=== PATIENT | male | born 1995 | race African-American/Black ===

== ENCOUNTER 2017-06-09 03:56 | Observation (INO) | payer OTHER ==
[~2017-06-09] VITALS: Ht 177.8 cm; Wt 58.1 kg
--- NOTE | 2017-06-09 04:16 | ED.ADGEN ---
Adult General Chief Complaint Chief Complaint: WEAKNESS/GENERALIZED HPI HPI Patient is a 22 year old man with no significant past medical history, who presents via EMS with report of fall, followed by headache, and possible syncope. Patient states that he was at work, when he tripped and struck his head against a desk. Patient states this occurred around 11:15 at night. Patient states that around 11:30 he certain noticing worsening of a frontal headache, and began feeling dizzy and "not well". He states that he may have struck his left chest against a desk as well. He denies any loss of consciousness at that time, any focal weakness, numbness or tingling. Patient states that he is currently having a throbbing numb feeling in the front of his head on the left side, denies any nausea or vomiting, any chest pain or shortness of breath, any focal weakness numbness or tingling at this time as well. 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 Patient states he is unclear if he may have lost consciousness, and cannot give a clear history of what occurred between 11:30, and the current time 4 AM. He denies any ingestions or exposures, any preceding symptoms. No similar episodes per his report. Review of Systems Review of Systems Constitutional: Denies fever or chills. [] Eyes: Denies change in visual acuity. [] HENT: Denies nasal congestion or sore throat. [] Respiratory: Denies cough or shortness of breath. [] Complaining of pain in the left side of his chest. Cardiovascular: Denies chest pain or edema. [] GI: Denies abdominal pain, nausea, vomiting, bloody stools or diarrhea. [] : Denies dysuria. [] Musculoskeletal: Denies back pain or joint pain. [] Integument: Denies rash. [] Neurologic: Denies focal weakness or sensory changes. Complaining of left frontal headache. Endocrine: Denies polyuria or polydipsia. [] Lymphatic: Denies swollen glands. [] Psychiatric: Denies depression or anxiety. [] Current Medications Current Medications Current Medications Medications (Trade) Dose Ordered Sig/Rodri Start Time Stop Time Status Last Admin Dose Admin Acetaminophen (Tylenol) 650 mg PRN Q4HRS PRN 06/09/17 06:30 06/10/17 06:29 Ondansetron HCl (Zofran) 4 mg PRN Q8HRS PRN 06/09/17 06:30 06/10/17 06:29 Sodium Chloride 1,000 ml @ 1,000 mls/hr 1X ONCE 06/09/17 06:00 06/09/17 06:59 06/09/17 05:30 1,000 MLS/HR Allergies Allergies Allergies Coded Allergies Type Severity Reaction Last Updated Verified No Known Drug Allergies 06/09/17 No Physical Exam Physical Exam Constitutional: Well developed, well nourished, no acute distress, non-toxic appearance. [] HENT: Normocephalic, atraumatic, bilateral external ears normal, oropharynx moist, no oral exudates, nose normal. [] Eyes: PERRLA, EOMI, conjunctiva normal, no discharge. [] Neck: Normal range of motion, no tenderness, supple, no stridor. [] Cardiovascular:Heart rate regular rhythm, no murmur, S1, S2, no rubs or gallops. No chest or crepitus. Patient with tenderness around the lateral and anterior left chest wall. No deformity or evidence of trauma identified. [] Lungs & Thorax: Bilateral breath sounds clear to auscultation, no wheezing, rhonchi, rales. [] Abdomen: Bowel sounds normal, soft, no tenderness, no masses, no pulsatile masses. [] Skin: Warm, dry, no erythema, no rash. [] Back: No tenderness, no CVA tenderness. [] Extremities: No tenderness, no cyanosis, no clubbing, ROM intact, no edema. Negative Homans sign. [] Neurologic: Alert and oriented X 3, normal motor function, normal sensory function, no focal deficits noted. GCS of 15, patient following all commands, appears slightly drowsy, but intact. Psychologic: Affect normal, judgement normal, mood normal. [] Current Patient Data Vital Signs Vital Signs Date Time Temp Pulse Resp B/P (MAP) Pulse Ox O2 Delivery O2 Flow Rate FiO2 06/09/17 04:58 72 13 109/56 (73) 97 Room Air 06/09/17 04:11 98.1 98.1 Lab Values Laboratory Tests Test 06/09/17 05:07 06/09/17 05:22 White Blood Count 5.6 x10^3/uL (4.0-11.0) Red Blood Count 4.46 x10^6/uL (4.30-5.70) Hemoglobin 13.2 g/dL (13.0-17.5) Hematocrit 38.4 % (39.0-53.0) L Mean Corpuscular Volume 86 fL (79-100) Mean Corpuscular Hemoglobin 30 pg (25-35) Mean Corpuscular Hemoglobin Concent 34 g/dL (31-37) Red Cell Distribution Width 12.8 % (11.5-14.5) Platelet Count 221 x10^3/uL (140-400) Neutrophils (%) (Auto) 47 % (31-73) Lymphocytes (%) (Auto) 31 % (24-48) Monocytes (%) (Auto) 10 % (0-9) H Eosinophils (%) (Auto) 12 % (0-3) H Basophils (%) (Auto) 1 % (0-3) Neutrophils # (Auto) 2.6 x10^3uL (1.8-7.7) Lymphocytes # (Auto) 1.7 x10^3/uL (1.0-4.8) Monocytes # (Auto) 0.6 x10^3/uL (0.0-1.1) Eosinophils # (Auto) 0.7 x10^3/uL (0.0-0.7) Basophils # (Auto) 0.0 x10^3/uL (0.0-0.2) Sodium Level 139 mmol/L (136-145) Potassium Level 3.3 mmol/L (3.5-5.1) L Chloride Level 104 mmol/L (98-107) Carbon Dioxide Level 29 mmol/L (21-32) Anion Gap 6 (6-14) Blood Urea Nitrogen 9 mg/dL (8-26) Creatinine 1.0 mg/dL (0.7-1.3) Estimated GFR (Cockcroft-Gault) 115.3 BUN/Creatinine Ratio 9 (6-20) Glucose Level 102 mg/dL (70-99) H Calcium Level 9.0 mg/dL (8.5-10.1) Total Bilirubin 0.4 mg/dL (0.2-1.0) Aspartate Amino Transferase (AST) 15 U/L (15-37) Alanine Aminotransferase (ALT) 17 U/L (16-63) Alkaline Phosphatase 71 U/L (46-116) Troponin I Quantitative < 0.017 ng/mL (0.000-0.055) Total Protein 7.2 g/dL (6.4-8.2) Albumin 3.7 g/dL (3.4-5.0) Albumin/Globulin Ratio 1.1 (1.0-1.7) Lipase 238 U/L (73-393) Urine Collection Type Unknown Urine Color Yellow Urine Clarity Clear Urine pH 6.0 Urine Specific [place] >=1.030 Urine Protein Negative mg/dL (NEG-TRACE) Urine Glucose (UA) Negative mg/dL (NEG) Urine Ketones (Stick) Negative mg/dL (NEG) Urine Blood Negative (NEG) Urine Nitrite Negative (NEG) Urine Bilirubin Small (NEG) Urine Urobilinogen Dipstick 1.0 mg/dL (0.2 mg/dL) Urine Leukocyte Esterase Negative (NEG) Urine RBC 0 /HPF (0-2) Urine WBC 0 /HPF (0-4) Urine Bacteria 0 /HPF (0-FEW) Urine Mucus Slight /LPF Urine Opiates Screen Neg (NEG) Urine Methadone Screen Neg (NEG) Urine Barbiturates Neg (NEG) Urine Phencyclidine Screen Neg (NEG) Urine Amphetamine/Methamphetamine Neg (NEG) Urine Benzodiazepines Screen Neg (NEG) Urine Cocaine Screen Neg (NEG) Urine Cannabinoids Screen Pos (NEG) Urine Ethyl Alcohol Neg (NEG) Laboratory Tests 06/09/17 05:07 Laboratory Tests 06/09/17 05:07 EKG EKG EC: Sinus rhythm, heart rate 88 beats/minute, upright axis, QTC of 4:15, MT 194, QRS of 74, patient with contour's with ST elevation in the lateral and anterior leads, consistent with age and body habitus, as interpreted by me. No prior for comparison. Radiology/Procedures Radiology/Procedures [][facility] [address] [place] [address] IMAGING REPORT Signed PATIENT: CLARITZA WRIGHT ACCOUNT: [id number] : 1995 LOCATION: ER AGE: 22 SEX: M EXAM STATUS: REG ER ORD. PHYSICIAN: JOSEPH FLORES DO REASON: Syncope/fall/GALLO/neck pain/AMS PROCEDURE: CT HEAD AND CERVICAL SPINE WO INDICATION: syncope COMPARISON: None. TECHNIQUE: Axial CT images obtained through the head and cervical spine without intravenous contrast. Coronal and sagittal reformats processed of cervical spine. One or more of the following individualized dose reduction techniques were utilized for this examination: 1. Automated exposure control; 2. Adjustment of the mA and/or kV according to patient size; 3. Use of iterative reconstruction technique. FINDINGS: Head: No intracranial hemorrhage. No midline shift. Basal cisterns patents. Ventricles and sulci are within normal limits. No acute osseous abnormality. Orbits and paranasal sinuses unremarkable. Cervical: No definite acute fracture. No significant malalignment. No evidence of perivertebral hematoma. IMPRESSION: No acute intracranial hemorrhage. No definite acute fracture or dislocation of the cervical spine. Electronically signed by: Shahab Porter MD (06/09/2017 4:57 AM) [facility] DICTATED and SIGNED BY: SHAHAB PORTER MD DATE: 06/09/17 0443 CC: JOSEPH FLORES DO; NO PCP ~ RIBS left NPH chest: Three-view: Normal cardiopulmonary silhouette, no infiltrates, no effusions, no pneumothorax, no soft tissue or bony abnormalities identified. As interpreted by me. Course & Med Decision Making Course & Med Decision Making Pertinent Labs and Imaging studies reviewed. (See chart for details) Patient is a poor historian, with unclear history. Due to complaints of neck pain, with possible traumatic injury to head and chest, c-collar placed upon arousing emergency department. Patient's heart rate is 91, blood pressure is 139 /84, oxygen saturation is 99% on room air, respiratory rate is 18 and unlabored. ECG of the head and neck is unremarkable, c-collar cleared without issue in the ED. Laboratory studies revealed a potassium of 3.3, otherwise electrolytes and renal function within normal limits, patient's urinalysis was positive for marijuana. No other concerning findings identified. On reevaluation , patient states he still feels very lightheaded, and was unable to pass ambulatory trial due to dizziness. Possible postconcussive syndrome after traumatic injury, on clear the patient actually had a single episode. Patient is agreeable for admission to the hospital for further monitoring and observation, findings as above discussed with the Dr. Erickson of internal medicine, patient accepted to her service as an observation admission, with consultation placed for neurology, bridge orders entered per discussion. Patient remained stable and comfortable awaiting transfer to the floor. Dragon Disclaimer Dragon Disclaimer This electronic medical record was generated, in whole or in part, using a voice recognition dictation system. Departure Impression: Primary Impression: Postconcussive syndrome Disposition: ADMITTED INPATIENT Admitting Physician: Other Condition: IMPROVED JOSEPH FLORES DO Jun 09, 2017 04:16
--- NOTE | 2017-06-09 05:01 | RAD ---
INDICATION: syncope COMPARISON: None. TECHNIQUE: Axial CT images obtained through the head and cervical spine without intravenous contrast. Coronal and sagittal reformats processed of cervical spine. One or more of the following individualized dose reduction techniques were utilized for this examination: 1. Automated exposure control; 2. Adjustment of the mA and/or kV according to patient size; 3. Use of iterative reconstruction technique. FINDINGS: Head: No intracranial hemorrhage. No midline shift. Basal cisterns patents. Ventricles and sulci are within normal limits. No acute osseous abnormality. Orbits and paranasal sinuses unremarkable. Cervical: No definite acute fracture. No significant malalignment. No evidence of perivertebral hematoma. IMPRESSION: No acute intracranial hemorrhage. No definite acute fracture or dislocation of the cervical spine. Electronically signed by: Nitin Celis MD (06/09/2017 4:57 AM) [facility]
[2017-06-09 05:25] LABS: BASO % 1 % (0-3); EOS % 12 % (0-3); HEMATOCRIT 38.4 % (39.0-53.0); HEMOGLOBIN 13.2 g/dL (13.0-17.5); LYMPH # 1.7 x10^3/uL (1.0-4.8); LYMPH % 31 % (24-48); MEAN CORPUSCULAR HEMOGLOBIN 30 pg (25-35); MEAN CORPUSCULAR HGB CONC 34 g/dL (31-37); MEAN CORPUSCULAR VOLUME 86 fL (79-100); MONO % 10 % (0-9); NEUT % 47 % (31-73); PLATELET COUNT 221 x10^3/uL (140-400); RED BLOOD COUNT 4.46 x10^6/uL (4.30-5.70); RED CELL DISTRIBUTION WIDTH 12.8 % (11.5-14.5); WHITE BLOOD COUNT 5.6 x10^3/uL (4.0-11.0)
[2017-06-09 05:30] LABS: BILIRUBIN,URINE SMALL (NEG); GLUCOSE,URINE NEGATIVE (NEG); NITRITE,URINE NEGATIVE (NEG); PROTEIN,URINE NEGATIVE (NEG-TRACE)
[2017-06-09 05:31] LABS: GFR 115.3; POTASSIUM 3.3 mmol/L (3.5-5.1)
[2017-06-09 05:37] LABS: ALBUMIN 3.7 g/dL (3.4-5.0); ALBUMIN/GLOBULIN RATIO 1.1 (1.0-1.7); TOTAL BILIRUBIN 0.4 mg/dL (0.2-1.0); TOTAL PROTEIN 7.2 g/dL (6.4-8.2)
[2017-06-09 05:39] LABS: BARBITURATES NEG (NEG); BENZODIAZEPINES NEG (NEG); CANNABINOIDS POS (NEG); COCAINE NEG (NEG); METHADONE NEG (NEG); OPIATES NEG (NEG); PHENCYCLIDINE NEG (NEG)
[2017-06-09 05:43] LABS: BACTERIA,URINE 0 /HPF (0-FEW); RBC,URINE 0 /HPF (0-2); WBC,URINE 0 /HPF (0-4)
[2017-06-09] MEDS ORDERED: IV NORMAL SALINE 1000ML BAG 1,000 ML IV ONE (06:00)
[2017-06-09] MEDS ORDERED: ACETAMINOPHEN 325 MG TABLET. PO PRN (06:30)
[2017-06-09] MEDS ORDERED: ONDANSETRON PF 4 MG/2 ML VIAL. IV PRN (06:30)
--- NOTE | 2017-06-09 06:49 | EKG ---
[facility] [address] [place] [address] Test Date: 2017-06-09 Test Time: 04:13:38 Pat Name: CLARITZA WRIGHT Department: Room: Gender: M Die Cut Operator: : 1995 Requested By: JOSEPH FLORES Order Number: [id number] Reading MD: Romeo Medeiros Measurements Intervals [place] Rate: 88 P: 47 HI: 194 QRS: 26 QRSD: 74 T: 51 QT: 340 QTc: 415 Interpretive Statements SINUS RHYTHM Electronically Signed On 06-13-2017 10:56:50 CDT by Romeo Medeiros
--- NOTE | 2017-06-09 07:28 | RAD ---
Indication pain associated with a fall. An AP view the chest was obtained as well as films targeted to left ribs. No prior imaging of the chest is available. The heart and pulmonary vessels appear normal. The lungs are clear. There is no pleural fluid. There is no pneumothorax. Films targeted to left ribs appear normal. IMPRESSION: Normal single view of the chest. Normal plain films left ribs
[2017-06-09 08:24] VITALS: BP 100/77
[2017-06-09 11:22] VITALS: BP 100/53
[2017-06-09 14:52] VITALS: BP 108/59
--- NOTE | 2017-06-09 15:00 | HP ---
ADMIT DATE: 06/09/2017 CHIEF COMPLAINT: Weakness, acute mental status changes. HISTORY OF PRESENT ILLNESS: The patient is a 22-year-old -Citizen Of [place] gentleman who had a work injury yesterday at [employer]. He apparently stumbled over a shoestring and hit his left forehead against a shelf fairly hard. He did have some pain as expected with it, but went about his work. Only quite a while later, he did start feeling dizzy, lightheaded and unwell all over. 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 The patient apparently was unresponsive for a bit. EMS was called and he was brought in. By the time he arrived in the Emergency Room, he was alert and oriented and was able to recall all the events almost completely. Currently, he has headache in the right posteroparietal area. PAST MEDICAL HISTORY: None. FAMILY HISTORY: Positive for hypertension. SOCIAL HISTORY: Admits to marijuana. ALLERGIES: No known drug allergies. HOME MEDICATIONS: None. REVIEW OF SYSTEMS: As per HPI. Currently, he has only headache. Denies any associated symptoms at this time. Denies any symptoms in rest of organ system review. PHYSICAL EXAMINATION: VITAL SIGNS: From today show a blood pressure of 100/77, heart rate of 92, respiratory rate at 19. He is afebrile. GENERAL: This is a slim 22-year-old -Citizen Of [place] gentleman, alert and oriented, in no acute distress. LUNGS: Clear. HEART: Has regular rate and rhythm. ABDOMEN: Has positive bowel sounds, soft, nontender. EXTREMITIES: Show no edema. NEUROLOGIC: He is alert and oriented x 3. Normal speech. His muscle strength is 5/5. LABORATORY DATA: CBC with a WBC of 5.6, hemoglobin 13.2, platelets of 222. Chemistries with a BUN and creatinine of 9 and 1, potassium at 3.3. The rest of electrolytes within normal limits. Toxicologies are positive for pot. IMAGING: CT of the head without contrast shows no acute intracranial hemorrhage. ASSESSMENT AND PLAN: The patient is a 22-year-old gentleman who had neurological deficits with loss of consciousness as well sometime after striking his head. Suspect this may be post-concussive syndrome in absence of any other findings. Neurology will be consulted to confirm. Further studies as per neuro service. The patient has essentially no other issues. Mild hypokalemia will be repleted orally. KINGS SULTANA MD DR: Juan Diego JOB#: [id number] / [id number] AZUL
--- NOTE | 2017-06-09 16:10 | PDOC2 ---
NEUROLOGY CONSULT Date of Admission Date of Admission DATE: 06/09/17 TIME: 16:03 Reason for Consult Reason for Consult: IMPRESSION: Concussion. Fall Headache. Cannabinoid positive in UDS. RECOMMENDATIONS/PLAN: Pain control. EEG HISTORY OF THE PRESENT ILLNESS: 22-y-old AA male patient had a fall around 3:00 am while working. He stated that he fell on the desk then said fell on the floor hurt his frontal head. He stated his co-worker helped him to stand up but he felt headaches. He was not certain whether rhoades last consciousness. He said he had nausea and vomiting once. No focalized sensory or motor symptoms reported. PAST MEDICAL HISTORY: Please see above. PAST SURGERY HISTORY: No major surgery recently. ALLERGY: NKDA MEDICATIONS: Refer to MAR FAMILY HISTORY: Non contributory. SOCIAL HISTORY: Lives at home. alone. Cannabinoids positive in test. REVIEW OF SYSTEMS: Constitutional: No malnutrition, weight loss, cachexia. Head: Fall this time. Skin: No edema, or rash. Ear: No infection, tinnitus. Eyes: No vision loss or color blindness. Nose: No bleeding or purulent discharges. Hearing: No hearing decrease. Neck: No injury. Cardiac: No NE, arrhythmia Pulmonary: No COPD. GI: No GI ulcer, GI bleeding. Urinary/genital: No dysuria, incontinence, urinary retention. Endocrinologic: No cousin face, craniofacial dysmorphism, polydactyly. Skeletomuscular: No muscular atrophy, deformity. Neurological: see HP. Psychiatric: Drug use/abuse. Otherwise, not [id number] review of systems. PHYSICAL EXAMINATION: General appearance is in no acute distress. HEENT: Normocephalic and nontraumatic. Eyes, nose, ears, and throat are unremarkable. Neck is supple. No lymphadenopathy. No bruits are heard over the carotid artery. No crepitus. Cardiovascular: S1, S2, regular rate and rhythm. Pulmonary: Clear to auscultation bilaterally. Abdomen: Bowel sounds are positive. Abdomen is soft, nontender, and nondistended. Extremities: No rash, lesions, or edema. No restriction of range of motion NEUROLOGICAL EXAMINATION: Alert Oriented to time, place and person. PERRL. EOMI. CN: no focal findings. Muscle tone: within normal. Muscle strength: 5 DTR: 2 Plantar reflex: Flexor response bilaterally Gait: not examined in bed. Sensory exam: no abnormal findings. No cerebellar signs elicited. F-T-N test accurate. Current Medications Current Medications Current Medications Sodium Chloride 1,000 ml @ 1,000 mls/hr 1X ONCE IV Last administered on t 05:30; Start 06/09/17 at 06:00; Stop 06/09/17 at 06:59; Status DC Ondansetron HCl (Zofran) 4 mg PRN Q8HRS PRN IV NAUSEA/VOMITING; Start 06/09/17 at 06:30; Stop 06/10/17 at 06:29 Acetaminophen (Tylenol) 650 mg PRN Q4HRS PRN PO FEVER; Start 06/09/17 at 06:30 ; Stop 06/10/17 at 06:29 Allergies Allergies: Coded Allergies: No Known Drug Allergies (Unverified , 06/09/17) Vitals VITALS Vital Signs Date Time Temp Pulse Resp B/P (MAP) Pulse Ox O2 Delivery O2 Flow Rate FiO2 06/09/17 14:52 97.9 82 20 108/59 (75) 100 Room Air 97.9 Labs Labs Laboratory Tests Test 06/09/17 05:07 06/09/17 05:22 White Blood Count 5.6 x10^3/uL (4.0-11.0) Red Blood Count 4.46 x10^6/uL (4.30-5.70) Hemoglobin 13.2 g/dL (13.0-17.5) Hematocrit 38.4 % (39.0-53.0) Mean Corpuscular Volume 86 fL (79-100) Mean Corpuscular Hemoglobin 30 pg (25-35) Mean Corpuscular Hemoglobin Concent 34 g/dL (31-37) Red Cell Distribution Width 12.8 % (11.5-14.5) Platelet Count 221 x10^3/uL (140-400) Neutrophils (%) (Auto) 47 % (31-73) Lymphocytes (%) (Auto) 31 % (24-48) Monocytes (%) (Auto) 10 % (0-9) Eosinophils (%) (Auto) 12 % (0-3) Basophils (%) (Auto) 1 % (0-3) Neutrophils # (Auto) 2.6 x10^3uL (1.8-7.7) Lymphocytes # (Auto) 1.7 x10^3/uL (1.0-4.8) Monocytes # (Auto) 0.6 x10^3/uL (0.0-1.1) Eosinophils # (Auto) 0.7 x10^3/uL (0.0-0.7) Basophils # (Auto) 0.0 x10^3/uL (0.0-0.2) Sodium Level 139 mmol/L (136-145) Potassium Level 3.3 mmol/L (3.5-5.1) Chloride Level 104 mmol/L (98-107) Carbon Dioxide Level 29 mmol/L (21-32) Anion Gap 6 (6-14) Blood Urea Nitrogen 9 mg/dL (8-26) Creatinine 1.0 mg/dL (0.7-1.3) Estimated GFR (Cockcroft-Gault) 115.3 BUN/Creatinine Ratio 9 (6-20) Glucose Level 102 mg/dL (70-99) Calcium Level 9.0 mg/dL (8.5-10.1) Total Bilirubin 0.4 mg/dL (0.2-1.0) Aspartate Amino Transf (AST/SGOT) 15 U/L (15-37) Alanine Aminotransferase (ALT/SGPT) 17 U/L (16-63) Alkaline Phosphatase 71 U/L (46-116) Troponin I Quantitative < 0.017 ng/mL (0.000-0.055) Total Protein 7.2 g/dL (6.4-8.2) Albumin 3.7 g/dL (3.4-5.0) Albumin/Globulin Ratio 1.1 (1.0-1.7) Lipase 238 U/L (73-393) Urine Collection Type Unknown Urine Color Yellow Urine Clarity Clear Urine pH 6.0 Urine Specific [place] >=1.030 Urine Protein Negative mg/dL (NEG-TRACE) Urine Glucose (UA) Negative mg/dL (NEG) Urine Ketones (Stick) Negative mg/dL (NEG) Urine Blood Negative (NEG) Urine Nitrite Negative (NEG) Urine Bilirubin Small (NEG) Urine Urobilinogen Dipstick 1.0 mg/dL (0.2 mg/dL) Urine Leukocyte Esterase Negative (NEG) Urine RBC 0 /HPF (0-2) Urine WBC 0 /HPF (0-4) Urine Bacteria 0 /HPF (0-FEW) Urine Mucus Slight /LPF Urine Opiates Screen Neg (NEG) Urine Methadone Screen Neg (NEG) Urine Barbiturates Neg (NEG) Urine Phencyclidine Screen Neg (NEG) Urine Amphetamine/Methamphetamine Neg (NEG) Urine Benzodiazepines Screen Neg (NEG) Urine Cocaine Screen Neg (NEG) Urine Cannabinoids Screen Pos (NEG) Urine Ethyl Alcohol Neg (NEG) Laboratory Tests Test 06/09/17 05:07 06/09/17 05:22 White Blood Count 5.6 x10^3/uL (4.0-11.0) Red Blood Count 4.46 x10^6/uL (4.30-5.70) Hemoglobin 13.2 g/dL (13.0-17.5) Hematocrit 38.4 % (39.0-53.0) Mean Corpuscular Volume 86 fL (79-100) Mean Corpuscular Hemoglobin 30 pg (25-35) Mean Corpuscular Hemoglobin Concent 34 g/dL (31-37) Red Cell Distribution Width 12.8 % (11.5-14.5) Platelet Count 221 x10^3/uL (140-400) Neutrophils (%) (Auto) 47 % (31-73) Lymphocytes (%) (Auto) 31 % (24-48) Monocytes (%) (Auto) 10 % (0-9) Eosinophils (%) (Auto) 12 % (0-3) Basophils (%) (Auto) 1 % (0-3) Neutrophils # (Auto) 2.6 x10^3uL (1.8-7.7) Lymphocytes # (Auto) 1.7 x10^3/uL (1.0-4.8) Monocytes # (Auto) 0.6 x10^3/uL (0.0-1.1) Eosinophils # (Auto) 0.7 x10^3/uL (0.0-0.7) Basophils # (Auto) 0.0 x10^3/uL (0.0-0.2) Sodium Level 139 mmol/L (136-145) Potassium Level 3.3 mmol/L (3.5-5.1) Chloride Level 104 mmol/L (98-107) Carbon Dioxide Level 29 mmol/L (21-32) Anion Gap 6 (6-14) Blood Urea Nitrogen 9 mg/dL (8-26) Creatinine 1.0 mg/dL (0.7-1.3) Estimated GFR (Cockcroft-Gault) 115.3 BUN/Creatinine Ratio 9 (6-20) Glucose Level 102 mg/dL (70-99) Calcium Level 9.0 mg/dL (8.5-10.1) Total Bilirubin 0.4 mg/dL (0.2-1.0) Aspartate Amino Transf (AST/SGOT) 15 U/L (15-37) Alanine Aminotransferase (ALT/SGPT) 17 U/L (16-63) Alkaline Phosphatase 71 U/L (46-116) Troponin I Quantitative < 0.017 ng/mL (0.000-0.055) Total Protein 7.2 g/dL (6.4-8.2) Albumin 3.7 g/dL (3.4-5.0) Albumin/Globulin Ratio 1.1 (1.0-1.7) Lipase 238 U/L (73-393) Urine Collection Type Unknown Urine Color Yellow Urine Clarity Clear Urine pH 6.0 Urine Specific [place] >=1.030 Urine Protein Negative mg/dL (NEG-TRACE) Urine Glucose (UA) Negative mg/dL (NEG) Urine Ketones (Stick) Negative mg/dL (NEG) Urine Blood Negative (NEG) Urine Nitrite Negative (NEG) Urine Bilirubin Small (NEG) Urine Urobilinogen Dipstick 1.0 mg/dL (0.2 mg/dL) Urine Leukocyte Esterase Negative (NEG) Urine RBC 0 /HPF (0-2) Urine WBC 0 /HPF (0-4) Urine Bacteria 0 /HPF (0-FEW) Urine Mucus Slight /LPF Urine Opiates Screen Neg (NEG) Urine Methadone Screen Neg (NEG) Urine Barbiturates Neg (NEG) Urine Phencyclidine Screen Neg (NEG) Urine Amphetamine/Methamphetamine Neg (NEG) Urine Benzodiazepines Screen Neg (NEG) Urine Cocaine Screen Neg (NEG) Urine Cannabinoids Screen Pos (NEG) Urine Ethyl Alcohol Neg (NEG) JAYMIE LAND MD Jun 09, 2017 16:10
--- NOTE | 2017-06-09 17:58 | EEG ---
DATE OF SERVICE: 06/09/2017 EEG NUMBER: [id number] OBJECTIVE: This is a 22-year-old -[place] male patient with history of concussion. EEG was requested to evaluate cerebral activity. METHODS: Twenty electrodes were applied according to the international 10-20 electrode placement system. EKG monitoring, hyperventilation, intermittent photic stimulation, monopolar and bipolar montages are routinely utilized. The record was obtained on a digital system with video monitoring. FINDINGS: 1. Background: The patient was recorded in the awake, drowsy, and sleep states. The overall background amplitude is 10-30 microvolts. A posterior dominant rhythm of 8-9 Hz is observed. 2. Abnormalities: No specific epileptiform discharge or electrographic seizure is seen. No focal or diffuse slowing. 3. Activation: Hyperventilation was performed with good efforts and normal response. Intermittent photic stimulation was performed with photic driving. No specific epileptiform discharge or electrographic seizure induced by hyperventilation or intermittent photic stimulation. IMPRESSION: This EEG is a normal study for the awake, drowsy, and sleep states. No focal, lateralizing, specific epileptiform discharge or electrographic seizure is seen. JAYMIE LAND MD DR: LOVELY/viktor JOB#: [id number] / [id number] AZUL
[2017-06-09 19:43] VITALS: BP 116/65
[2017-06-09] MEDS ORDERED: NICOTINE 14MG PATCH. TD PRN (21:00)
[2017-06-09 23:14] VITALS: BP 108/62
[2017-06-10 03:22] VITALS: BP 101/60
[2017-06-10 07:00] VITALS: BP 100/35
[2017-06-10 11:00] VITALS: BP 118/67
--- NOTE | 2017-06-10 14:57 | PDOC ---
PROGRESS NOTES Assessment Assessment Concussion likely. Fall Headache. Cannabinoid positive in UDS. RECOMMENDATIONS/PLAN: Pain control. EEG on 06/09: Normal. HCT and CCT all negative. HISTORY OF THE PRESENT ILLNESS: 22-y-old AA male patient had a fall around 3:00 am while working. He stated that he fell on the desk then said fell on the floor hurt his frontal head. He stated his co-worker helped him to stand up but he felt headaches. He was not certain whether rhoades last consciousness. He said he had nausea and vomiting once. No focalized sensory or motor symptoms reported. PAST MEDICAL HISTORY: Please see above. PAST SURGERY HISTORY: No major surgery recently. ALLERGY: NKDA MEDICATIONS: Refer to [facility] FAMILY HISTORY: Non contributory. SOCIAL HISTORY: Lives at home. alone. Cannabinoids positive in test. REVIEW OF SYSTEMS: Constitutional: No malnutrition, weight loss, cachexia. Head: Fall this time. Skin: No edema, or rash. Ear: No infection, tinnitus. Eyes: No vision loss or color blindness. Nose: No bleeding or purulent discharges. Hearing: No hearing decrease. Neck: No injury. Cardiac: No GA, arrhythmia Pulmonary: No COPD. GI: No GI ulcer, GI bleeding. Urinary/genital: No dysuria, incontinence, urinary retention. Endocrinologic: No cousin face, craniofacial dysmorphism, polydactyly. Skeletomuscular: No muscular atrophy, deformity. Neurological: see HP. Psychiatric: Drug use/abuse. Otherwise, not -boikr review of systems. PHYSICAL EXAMINATION: General appearance is in no acute distress. HEENT: Normocephalic and nontraumatic. Eyes, nose, ears, and throat are unremarkable. Neck is supple. No lymphadenopathy. No bruits are heard over the carotid artery. No crepitus. Cardiovascular: S1, S2, regular rate and rhythm. Pulmonary: Clear to auscultation bilaterally. Abdomen: Bowel sounds are positive. Abdomen is soft, nontender, and nondistended. Extremities: No rash, lesions, or edema. No restriction of range of motion NEUROLOGICAL EXAMINATION: Alert Oriented to time, place and person. PERRL. EOMI. CN: no focal findings. Muscle tone: within normal. Muscle strength: 5 DTR: 2 Plantar reflex: Flexor response bilaterally Gait: normal. Sensory exam: no abnormal findings. No cerebellar signs elicited. F-T-N test accurate. Objective Objective Vital Signs Date Time Temp Pulse Resp B/P (MAP) Pulse Ox O2 Delivery O2 Flow Rate FiO2 06/10/17 11:00 98.0 76 16 118/67 (84) Room Air 98.0 06/10/17 07:00 100 Intake and Output 06/11/17 07:00 Intake Total 480 ml Balance 480 ml Intake Oral 480 ml Vitals Signs Vitals VS - Last 72 Hours, by Label Date Time Temp Pulse Resp B/P (MAP) Pulse Ox O2 Delivery O2 Flow Rate FiO2 06/10/17 11:00 98.0 76 16 118/67 (84) Room Air 98.0 06/10/17 08:00 Room Air 06/10/17 07:00 96.8 66 16 100/35 (56) 100 Room Air 96.8 06/10/17 03:22 97.6 80 18 101/60 (74) 100 Room Air 97.6 06/09/17 23:14 98.1 83 18 108/62 (77) 98 Room Air 98.1 06/09/17 20:00 Room Air 06/09/17 19:43 98.2 86 18 116/65 (82) 100 Room Air 98.2 06/09/17 14:52 97.9 82 20 108/59 (75) 100 Room Air 97.9 06/09/17 11:22 97.6 83 20 100/53 (69) 100 Room Air 97.6 06/09/17 08:24 98.7 92 19 100/77 (85) 98 Room Air 98.7 06/09/17 08:10 Room Air 06/09/17 08:10 Room Air 06/09/17 07:18 72 15 105/66 (79) 99 Room Air Medication Medications Current Medications Nicotine (Nicoderm Cq 14mg) 1 patch PRN DAILY PRN TD SMOKING CESSATION Last administered on 06/09/17t 21:19; Start 06/09/17 at 21:00 Comment Review of Relevant I have reviewed the following items boyd (where applicable) has been applied. JAYMIE LAND MD Jun 10, 2017 14:57
--- NOTE | 2017-06-12 19:42 | DS ---
DATE OF DISCHARGE: 06/10/2017 CHIEF COMPLAINT: Fall and concussion. HOSPITAL COURSE: The patient is a 22-year-old gentleman who had a mechanical fall at home, falling onto a shelf with his right temporal region. Although he initially had pain at the site, later developed headache on his left parietal area, became dizzy, confused and lied down on the floor and apparently became unresponsive. He was brought in to the Emergency Room. Suspicion was for concussive syndrome, but seizure could not be ruled out. Neurology was therefore involved and workup was undertaken with MRI as well as EEG, both of which were negative. He was therefore discharged to home after 24 hours. DISCHARGE PHYSICAL EXAMINATION: VITAL SIGNS: Show a blood pressure of 118/67, heart rate of 76, respiratory rate of 16. He is afebrile. GENERAL: This is a slender gentleman, alert and oriented, in no acute distress. LUNGS: Clear. HEART: Regular rate and rhythm. ABDOMEN: Has positive bowel sounds, soft, nontender. EXTREMITIES: Show no edema. No neurological deficits are noted. DISCHARGE DIAGNOSIS: Postconcussive syndrome. DISCHARGE DISPOSITION: To home. DISCHARGE CONDITION: Improved. DISCHARGE MEDICATIONS: Please refer to [facility]. DISCHARGE INSTRUCTIONS: The patient will follow up with PCP in 1-2 weeks. KINGS SULTANA MD DR: UR/nts JOB#: [id number] / [id number] AZUL
== END 2017-06-10 16:50 | disposition home or self-care (01) ==
LOC: ER 03:56 → 6 SOUTH 05:57
PROVIDERS: ADMIT Internal Medicine Hematology & Oncology; ATTEND Internal Medicine Hematology & Oncology
DX: F07.81 Postconcussional syndrome (principal); E87.6 Hypokalemia; F12.90 Cannabis use, unspecified, uncomplicated; W18.30XA Fall on same level, unspecified, initial encounter; Y92.009 Unspecified place in unspecified non-institutional (private) residence as the place of occurrence of the external cause; Z82.49 Family history of ischemic heart disease and other diseases of the circulatory system
CPT/HCPCS: 36415; 70450; 71101; 72125; 80053; 80307; 81001; 83690; 84484; 85025; 93005; 95816; 96360; G0378; G0379; J7030; G0479